=== PATIENT | female | born 1955 | race Caucasian/White ===

== ENCOUNTER 2017-12-07 12:58 | Outpatient (CLI) | payer MEDICARE, MEDICAID | END 2017-12-07 12:59 | disposition critical access hospital (66) | LOC: EMS 12:58 | PROVIDERS: ATTEND Surgery | DX: R53.1 Weakness (principal); K08.9 Disorder of teeth and supporting structures, unspecified | CPT/HCPCS: A0425; A0427 ==

== ENCOUNTER 2017-12-07 13:34 | Emergency (ER) | payer MEDICARE, MEDICAID ==
[2017-12-07 14:30] VITALS: BP 171/107
--- NOTE | 2017-12-07 14:51 | ED Physician Documentation ---
History of Present Illness - Stated complaint Stated Complaint: GENERAL WEAKNESS - Chief complaint Chief Complaint: General - History obtained from History obtained from: Patient - History of Present Illness Timing: How many weeks ago (1) Pain level max: 4 Pain level now: 2 Improved by: nothing Worsened by: nothing - Additonal information Additional information: Patient states that she had a tooth pulled 1 week ago, the tooth broke and is now more swollen. also feels like her sinus on the R is infected again. Treated with abx in October, but did not finish them. States her dentist told her to see an oral surgeon for her tooth. Has not made this appt yet. Vomited x2 2 days ago, feels better now. BP high today, but hasn't taken her meds for a few days. No chest pain or dyspnea. No vision changes. Is supposed to pepper picker her refills. today. Review of Systems Constitutional: reports: Fever (subjective) Nose: reports: Congestion, Sinus pressure / pain Throat: denies: Sore throat Cardiac: denies: Chest pain / pressure Respiratory: denies: Cough GI: denies: Abdominal Pain, Nausea, Diarrhea, Hematemesis, Bloody / black stool : denies: Dysuria Skin: denies: Rash Musculoskeletal: denies: Neck pain, Back pain Neurologic: denies: Headache PD PAST MEDICAL HISTORY - Past Medical History Past Medical History: Yes Cardiovascular: Hypertension Respiratory: COPD HEENT: None Psych: Depression, Anxiety Musculoskeletal: Osteoarthritis - Past Surgical History Past Surgical History: Yes General: Appendectomy Ortho: Spine surgery /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 Neuro: Other HEENT: Tonsil/Adenoidectomy - Present Medications Home Medications: Ambulatory Orders Medication Instructions Recorded Confirmed Cyclobenzaprine [Flexeril] 10 mg PO BID 06/03/13 06/08/16 Gabapentin 300 mg PO DAILY 06/03/13 06/08/16 Lisinopril [Zestril] 20 mg PO DAILY 06/03/13 06/08/16 Omeprazole [PriLOSEC] 20 mg PO DAILY 08/10/14 06/08/16 Amox/Clav 875/125 [Augmentin] 1 each PO Q12H #20 tablet 12/07/17 - Allergies Allergies/Adverse Reactions: Allergies Allergy/AdvReac Type Severity Reaction Status Date / Time acetaminophen [From Tylenol] Allergy Unknown Verified 08/11/14 10:08 - Social History Does the pt smoke?: Yes Smoking Status: Current every day smoker Does the pt drink ETOH?: No Does the pt have substance abuse?: No - POLST Patient has POLST: No PD ED PE NORMAL - Vitals Vital signs reviewed: Yes - General General: Alert and oriented X 3, No acute distress, Well developed/nourished - HEENT HEENT: PERRL, Moist mucous membranes, Other (TTP over the R maxillary sinus. No overlying skin changes. Edentulous mouth with swelling where the lower R canine would be, no fluctuance. No ludwigs angina.) - Neck Neck: Supple, no meningeal sign - Cardiac Cardiac: RRR, No murmur - Respiratory Respiratory: Clear bilaterally - Abdomen Abdomen: Normal bowel sounds, Soft, Non tender, Non distended - Derm Derm: Warm and dry - Extremities Extremities: No deformity - Neuro Neuro: Alert and oriented X 3 - Psych Psych: Normal mood, Normal affect Results - Vitals Vitals: Vital Signs - 24 hr 12/07/17 12/07/17 13:42 14:27 Temperature 36.6 C Heart Rate 95 78 Respiratory 18 18 Rate Blood Pressure 161/96 H 171/107 H O2 Saturation 97 98 Oxygen O2 Source Room air PD MEDICAL DECISION MAKING - ED course Complexity details: considered differential, d/w patient ED course: Patient is a 62-year-old female who presents to the emergency department with what appears to be sinusitis as well as dental caries. She is fully edentulous now other than a slight swelling where her right lower canine used to be. Will place on antibiotics and follow-up with the dentist. She declines any laboratory work at this time. She received IV fluids with EMS. No longer feels lightheaded or dizzy with standing. She would like to go home at this time. No facial swelling or cellulitis. Patient counseled regarding signs and symptoms for which I believe and urgent re-evaluation would be necessary. Patient with good understanding of and agreement to plan and is comfortable going home at this time This document was made in part using voice recognition software. While efforts are made to proofread this document, sound alike and grammatical errors may occur. She will pepper picker her antihypertensive medications on the way home Departure - Departure Disposition: 01 Home, Self Care Clinical Impression: Dental infection Sinusitis Qualifiers: Sinusitis location: maxillary Chronicity: acute Recurrence: recurrent Qualified Code(s): J01.01 - Acute recurrent maxillary sinusitis Condition: Good Instructions: ED Sinusitis Abx Tx Follow-Up: VALENTIN CLEARY [Physician No Access] - Valentin Cleary DDS [Provider Admit Priv/Credential] - Prescriptions: Amox/Clav 875/125 [Augmentin] 1 each PO Q12H #20 tablet Comments: Take all antibiotics until gone. Follow up with a dentist or oral surgeon for your tooth. Discharge Date/Time: 12/07/17 15:03
== END 2017-12-07 15:03 | disposition home or self-care (01) ==
LOC: EDUNIT# → ED 13:34
DX: K04.7 Periapical abscess without sinus (principal); J01.01 Acute recurrent maxillary sinusitis; I10 Essential (primary) hypertension; F17.200 Nicotine dependence, unspecified, uncomplicated
CPT/HCPCS: 99283

== ENCOUNTER 2018-01-18 09:47 | Outpatient (CLI) | payer MEDICARE, MEDICAID ==
[2018-01-19 15:21] LABS: HEPATITIS C ANTIBODY NON-REACTIVE (NON-REACTIVE)
== END 2018-01-18 09:48 | disposition home or self-care (01) ==
LOC: LAB.S 09:47
PROVIDERS: ATTEND Nurse Practitioner Family
DX: Z20.5 Contact with and (suspected) exposure to viral hepatitis (principal)
CPT/HCPCS: 36415; 86803

== ENCOUNTER 2018-03-25 15:39 | Outpatient (CLI) | payer MEDICARE, MEDICAID ==
--- NOTE | 2018-03-26 10:07 | XRAY Report ---
TWO VIEW CHEST: 03/25/2018 CLINICAL INDICATION: Cough. COMPARISON: 08/31/2015. FINDINGS: Frontal and lateral views of the chest demonstrate a normal cardiac silhouette. The lungs are clear. No effusion or pneumothorax is present. IMPRESSION: NORMAL CHEST. TD: 03/26/2018 09:56
== END 2018-03-25 15:40 | disposition home or self-care (01) ==
LOC: DI.S 15:39
PROVIDERS: ATTEND Nurse Practitioner Family
DX: R05 Cough (principal)
CPT/HCPCS: 71046

== ENCOUNTER 2018-04-19 09:49 | Outpatient (CLI) | END 2018-04-19 09:50 | disposition home or self-care (01) ==

== ENCOUNTER 2018-07-20 09:48 | Outpatient (CLI) | payer MEDICARE, MEDICAID ==
[2018-07-21 13:57] LABS: HEPATITIS C ANTIBODY NON-REACTIVE (NON-REACTIVE)
== END 2018-07-20 09:49 | disposition home or self-care (01) ==
LOC: LAB.F 09:48
PROVIDERS: ATTEND Nurse Practitioner Family
DX: Z20.5 Contact with and (suspected) exposure to viral hepatitis (principal)
CPT/HCPCS: 36415; 86803

== ENCOUNTER 2018-08-07 10:32 | Emergency (ER) | payer MEDICARE, MEDICAID ==
[2018-08-07 11:50] LABS: BASOPHILS # (AUTO) 0.1 10^3/uL (0.0-0.1); EOSINOPHILS # (AUTO) 0.2 10^3/uL (0.0-0.7); EOSINOPHILS % (AUTO) 1.5 %; HGB - HEMOGLOBIN 15.8 g/dL (12.0-16.0); LYMPHOCYTES # (AUTO) 3.3 10^3/uL (1.5-3.5); LYMPHOCYTES % (AUTO) 22.8 %; MEAN CORPUSCULAR HEMOGLOBIN 29.7 pg (27.0-31.0); MEAN CORPUSCULAR HGB CONC 34.7 g/dL (32.0-36.0); MEAN CORPUSCULAR VOLUME 85.5 fL (81.0-99.0); MONOCYTES # (AUTO) 0.7 10^3/uL (0.0-1.0); MONOCYTES % (AUTO) 4.7 %; NEUTROPHILS # (AUTO) 10.2 10^3/uL (1.5-6.6); PLT - PLATELET COUNT 246 10^3/uL (130-450); RED BLOOD COUNT 5.34 10^6/uL (4.20-5.40); RED CELL DISTRIBUTION WIDTH 12.9 % (12.0-15.0); WHITE BLOOD COUNT 14.5 x10^3/uL (4.8-10.8)
[2018-08-07 11:58] LABS: CALCIUM 9.4 mg/dL (8.5-10.3); CREATININE 0.7 mg/dL (0.4-1.0)
[2018-08-07] MEDS ORDERED: IOPAMIDOL-300 100 ML VIAL ONE (12:12)
[2018-08-07] MEDS ORDERED: IOPAMIDOL-300 100 ML VIAL IVP ONE ×2 (12:23)
--- NOTE | 2018-08-07 12:59 | CT Report ---
Reason: left jaw pain with tender lesion Procedure Date: 08/07/2018 Accession Number: [id number] / [id number] Procedure: CT - Neck Soft Tissue W/ CPT Code: FULL RESULT: EXAM: CT SOFT TISSUE NECK WITH CONTRAST. EXAM DATE: 08/07/2018 12:25 PM. HISTORY: 63-year-old woman with left-sided jaw pain and tenderness. COMPARISONS: NECK SOFT TISSUE W/ 02/15/2014 3:35 PM. TECHNIQUE: Routine soft tissue neck CT protocol. Reconstructions: Coronal and sagittal. IV contrast: ISOVUE 300 80mL. In accordance with CT protocol optimization, one or more of the following dose reduction techniques were utilized for this exam: automated exposure control, adjustment of mA and/or KV based on patient size, or use of iterative reconstructive technique. FINDINGS: Visualized Intracranial Contents: Unremarkable. Orbits: Unremarkable. Sinuses: Minimal mucosal thickening is present in the paranasal sinuses. Mastoid air cells are clear. Pharynx and Oral Cavity: Parapharyngeal and retropharyngeal spaces are symmetric without mass lesion. Base of tongue and floor of mouth are symmetric without mass lesion. Pharyngeal airway is widely patent. Larynx: Symmetric without mass lesion. True vocal cords are symmetric. Airway is widely patent. Parotid and Submandibular Glands: The left parotid gland is mildly enhancing and enlarged and there is surrounding fat stranding, consistent with inflammatory reaction. No evidence of dilated ducts, sialolith, or underlying mass lesion. The right parotid and bilateral submandibular glands are unremarkable. Lymph Nodes and Soft Tissues: No cervical or supraclavicular lymphadenopathy is present. Mild fat stranding and fascial thickening is present in the left submandibular soft tissues and overlying the adjacent parotid gland, most consistent with inflammatory reaction. No evidence of fluid collection to suggest abscess. Thyroid: Normal. Lung Apices: Clear. Bones: No acute fracture or malalignment. Degenerative changes are present, worst at C6-C7. Teeth: The patient is edentulous. IMPRESSION: 1. Fat stranding and fascial thickening in the left submandibular soft tissues and surrounding the adjacent parotid gland. The parotid gland also appears mildly enlarged and enhancing. Findings are consistent with inflammatory reaction, consistent with parotiditis versus local cellulitis. No evidence of fluid collection to suggest abscess. RADIA
[2018-08-07] MEDS ORDERED: predniSONE 20 MG TABLET PO STA (13:20)
--- NOTE | 2018-08-07 13:25 | ED Physician Documentation ---
History of Present Illness - Stated complaint Stated Complaint: LT JAW PX/NECK PX BELOW LT EAR - Chief complaint Chief Complaint: General - History obtained from History obtained from: Patient - History of Present Illness Timing: How many days ago (2) Pain level max: 0 Pain level now: 0 - Additonal information Additional information: Pt here with complain of left jaw swelling the past 2 days. Denies any fever or other symptoms. Pt expressed concern about her jaw which was injured 20 years ago and she had to have reconstruction 5 years ago. States she has chronic drainage and inflammation of her left maxillary sinus and left jaw and had been followed up with an [facility] surgeon. She expressed concern about an infection or cancer. Pt states she smokes and her immunization status including mumps is up to date. Review of Systems Ten Systems: 10 systems reviewed and negative Constitutional: reports: Chills. denies: Fever Ears: denies: Ear pain Nose: reports: Congestion, Sinus pressure / pain. 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 Neuro: Other HEENT: Tonsil/Adenoidectomy, Other (multiple left facial/sinus surgeries in 2012 from previous injury in 1997) - Present Medications Home Medications: Ambulatory Orders Medication Instructions Recorded Confirmed Lisinopril [Zestril] 20 mg PO DAILY 06/03/13 06/08/16 RX: Omeprazole [PriLOSEC] 20 mg PO DAILY 08/10/14 06/08/16 Aspirin [Aspirin EC] 81 mg PO 08/07/18 RX: predniSONE [Prednisone] 20 mg PO BID #8 tablet 08/07/18 - Allergies Allergies/Adverse Reactions: Allergies Allergy/AdvReac Type Severity Reaction Status Date / Time acetaminophen [From Tylenol] Allergy Unknown Verified 08/07/18 10:50 - Social History Does the pt smoke?: Yes Smoking Status: Current every day smoker Does the pt drink ETOH?: No Does the pt have substance abuse?: No - Immunizations Immunizations are current?: No Immunizations: TDAP >10years/unknown - POLST Patient has POLST: No PD ED PE NORMAL - Vitals Vital signs reviewed: Yes - General General: Alert and oriented X 3, No acute distress, Well developed/nourished - HEENT HEENT: Ears normal, Moist mucous membranes, Pharynx benign, Other (has dentures. No gingivitis. Non tender and not swollen buccal mucosa. post nasal drip in posterior pharynx. TMJ intact. Left mandible by the angle with a soft round mass that's mildly tender to palpation about 2 cm in diameter. No erythema.) - Neck Neck: Supple, no meningeal sign, No adenopathy - Cardiac Cardiac: RRR, No murmur - Respiratory Respiratory: No respiratory distress, Clear bilaterally - Abdomen Abdomen: Normal bowel sounds, Soft, Non tender, Non distended - Derm Derm: Warm and dry - Extremities Extremities: No deformity - Neuro Neuro: Alert and oriented X 3 - Psych Psych: Normal mood, Normal affect Results - Vitals Vitals: Vital Signs - 24 hr 08/07/18 10:47 Temperature 37.3 C Heart Rate 110 H Respiratory 19 Rate Blood Pressure 151/97 H O2 Saturation 97 Oxygen O2 Source Room air - Labs Labs: Laboratory Tests 08/07/18 08/07/18 11:40 11:40 WBC 14.5 H RBC 5.34 Hgb 15.8 Hct 45.6 MCV 85.5 MCH 29.7 MCHC 34.7 RDW 12.9 Plt Count 246 MPV 8.0 Neut # (Auto) 10.2 H Lymph # (Auto) 3.3 [place] # (Auto) 0.7 Eos # (Auto) 0.2 Baso # (Auto) 0.1 Absolute Nucleated RBC 0.00 Nucleated RBC % 0.0 Sodium 135 Potassium 4.0 Chloride 101 Carbon Dioxide 25 Anion Gap 9.0 BUN 24 H Creatinine 0.7 Estimated GFR (MDRD) 85 L Glucose 119 H Calcium 9.4 PD MEDICAL DECISION MAKING - ED course Complexity details: re-evaluated patient (Pt NAD, nontoxic, not drooling. Wants to go home on prednisone.), considered differential (parotitis, saleolithiasis, abscess, cellulitis, mass), d/w patient (Pt informed of test results. Discussed options of treatment. Pt refused antibiotics as she was told that she's getting resistant to antibiotics after all the treatments she had received from her left jaw/sinus problems. She wants prednisone to decrease the inflammation and drainage which had helped before. She will contact her [facility] doctor for reevaluation and go to an ENT if her [facility] doctor does not want to handle her current inflammed parotid gland) Departure - Departure Disposition: 01 Home, Self Care Clinical Impression: Parotitis, acute Condition: Good Instructions: ED Submandibular Gland Infec Follow-Up: Wendy Valladares ARNP [Primary Care Provider] - Within 3 Days Prescriptions: RX: predniSONE [Prednisone] 20 mg PO BID #8 tablet Comments: FOLLOW UP W/ YOUR [facility] DOCTOR THIS WEEK. GET AN E.N.T. REFERRAL TO REEVALUATE YOUR LEFT PAROTITIS OR INFLAMMED PAROTID GLAND. IF WORSE RETURN TO THE E.R. Discharge Date/Time: 08/07/18 13:39
[2018-08-07 13:33] VITALS: BP 136/86
== END 2018-08-07 13:39 | disposition home or self-care (01) ==
LOC: ED 10:32
DX: K11.21 Acute sialoadenitis (principal); I10 Essential (primary) hypertension; F17.200 Nicotine dependence, unspecified, uncomplicated; Z79.82 Long term (current) use of aspirin
CPT/HCPCS: 36415; 70491; 80048; 85025; 99283; J7512; Q9967

== ENCOUNTER 2018-09-25 13:26 | Outpatient (CLI) | payer MEDICARE, MEDICAID ==
[2018-09-25] MEDS ORDERED: ALBUTEROL NEB 2.5 MG/3 ML INH ONE (15:00)
== END 2018-09-25 13:27 | disposition home or self-care (01) ==
LOC: RT 13:26
PROVIDERS: ATTEND Nurse Practitioner Family
DX: J44.9 Chronic obstructive pulmonary disease, unspecified (principal)
CPT/HCPCS: 94060

== ENCOUNTER 2019-04-01 12:51 | Outpatient (CLI) | payer MEDICARE, MEDICAID ==
[2019-04-02 12:22] LABS: HEPATITIS C ANTIBODY NON-REACTIVE (NON-REACTIVE)
== END 2019-04-01 12:52 | disposition home or self-care (01) ==
LOC: LAB.F 12:51
PROVIDERS: ATTEND Registered Nurse
DX: Z20.5 Contact with and (suspected) exposure to viral hepatitis (principal)
CPT/HCPCS: 36415; 86803

== ENCOUNTER 2019-06-24 07:31 | Outpatient (CLI) | payer MEDICARE, MEDICAID ==
--- NOTE | 2019-06-24 15:58 | CT Report ---
Reason: PERSONAL HISTORY OF NICOTINE DEPENDENCE Procedure Date: 06/24/2019 Accession Number: [id number] / [id number] Procedure: CT - Low Dose Lung Cancer Screen CPT Code: FULL RESULT: EXAM CT LUNG SCREEN EXAM DATE: 06/24/2019 07:39 AM. HISTORY: 64-year-old patient with 82-wvdv-coer smoking history. Currently smoking: Yes. COMPARISON: None. TECHNIQUE: CT examination of the entire thorax without contrast was performed using low-dose technique. Thin section coronal, axial, sagittal and MIP axial images were obtained. In accordance with CT protocol optimization, one or more of the following dose reduction techniques were utilized for this exam: automated exposure control, adjustment of mA and/or KV based on patient size, or use of iterative reconstructive technique. FINDINGS: Nodules: Right upper lobe: 3 mm apical nodule image 17 series 4, 0.6 x 0.5 cm nodule image 47. Right middle lobe: 3 mm nodule image 101. Right lower lobe: 4 mm nodule image 94. Left upper lobe: 2 mm nodule image 64. Left lower lobe: None. Emphysema: Overall mild. Pleura: Unremarkable. Aorta: Unremarkable. Mediastinum: Unremarkable. Coronary calcifications: None. Other pulmonary findings: None. Other extrapulmonary findings: None. IMPRESSION: Lung-RADS ASSESSMENT CATEGORY: 3 - probably benign. Probability of malignancy: 1-2%. RECOMMENDATION: Per lung RADS guidelines, 6-month follow-up low-dose chest CT. RADIA
== END 2019-06-24 07:32 | disposition home or self-care (01) ==
LOC: DI 07:31
PROVIDERS: ATTEND Registered Nurse
DX: Z12.2 Encounter for screening for malignant neoplasm of respiratory organs (principal); J43.9 Emphysema, unspecified; F17.210 Nicotine dependence, cigarettes, uncomplicated

== ENCOUNTER 2020-08-09 07:46 | Outpatient (CLI) | payer MEDICARE, MEDICAID ==
[2020-08-09 15:35] LABS: BASOPHILS # (AUTO) 0.1 10^3/uL (0.0-0.1); BASOPHILS % (AUTO) 0.5 %; EOSINOPHILS # (AUTO) 0.3 10^3/uL (0.0-0.7); EOSINOPHILS % (AUTO) 2.6 %; HGB - HEMOGLOBIN 16.4 g/dL (12.0-16.0); LYMPHOCYTES # (AUTO) 3.2 10^3/uL (1.5-3.5); MEAN CORPUSCULAR HEMOGLOBIN 29.3 pg (27.0-31.0); MEAN CORPUSCULAR HGB CONC 31.8 g/dL (32.0-36.0); MEAN CORPUSCULAR VOLUME 92.1 fL (81.0-99.0); MEAN PLATELET VOLUME 11.2 fL (7.9-10.8); MONOCYTES # (AUTO) 0.4 10^3/uL (0.0-1.0); MONOCYTES % (AUTO) 4.1 %; NEUTROPHILS # (AUTO) 5.8 10^3/uL (1.5-6.6); NEUTROPHILS % (AUTO) 59.4 %; PLT - PLATELET COUNT 247 10^3/uL (130-450); RED CELL DISTRIBUTION WIDTH 12.2 % (12.0-15.0); WHITE BLOOD COUNT 9.7 x10^3/uL (4.8-10.8)
[2020-08-09 15:58] LABS: ALBUMIN 4.4 g/dL (3.2-5.5); ALBUMIN/GLOBULIN RATIO 1.5 (1.0-2.2); ALKALINE PHOSPHATASE 68 IU/L (42-121); ALT ALANINE AMINOTRANSFERASE 13 IU/L (10-60); AST ASPARTATE AMINOTRANSFERASE 16 IU/L (10-42); BILIRUBIN,TOTAL 0.6 mg/dL (0.2-1.0); BUN - BLOOD UREA NITROGEN 13 mg/dL (6-20); CALCIUM 9.7 mg/dL (8.5-10.3); CARBON DIOXIDE - CO2 29 mmol/L (21-32); CHLORIDE 103 mmol/L (101-111); CHOL/HDL RATIO 6.1 (<4.4); CHOLESTEROL 249 mg/dL; CREATININE 0.7 mg/dL (0.4-1.0); GLUCOSE 89 mg/dL (70-100); HDL CHOLESTEROL 41 mg/dL; LDL CHOLESTEROL,CALCULATED 160 mg/dL; LDL/HDL RATIO 3.9 (<4.4); PHOSPHORUS 2.9 mg/dL (2.5-4.6); SODIUM 140 mmol/L (135-145); TOTAL PROTEIN 7.3 g/dL (6.7-8.2); VLDL CHOLESTEROL 48 mg/dL
== END 2020-08-09 07:47 | disposition home or self-care (01) ==
LOC: LAB.S 07:46
PROVIDERS: ATTEND Family Medicine
DX: I10 Essential (primary) hypertension (principal); J44.9 Chronic obstructive pulmonary disease, unspecified; G62.9 Polyneuropathy, unspecified; K76.0 Fatty (change of) liver, not elsewhere classified; E78.5 Hyperlipidemia, unspecified
CPT/HCPCS: 36415; 80053; 80061; 82306; 83721; 83735; 84100; 84443; 85025

== ENCOUNTER 2020-08-16 12:31 | Outpatient (CLI) | payer MEDICARE, MEDICAID ==
[2020-08-16 15:26] LABS: BASOPHILS # (AUTO) 0.1 10^3/uL (0.0-0.1); BASOPHILS % (AUTO) 0.6 %; EOSINOPHILS # (AUTO) 0.2 10^3/uL (0.0-0.7); EOSINOPHILS % (AUTO) 1.5 %; HGB - HEMOGLOBIN 16.4 g/dL (12.0-16.0); LYMPHOCYTES # (AUTO) 3.3 10^3/uL (1.5-3.5); LYMPHOCYTES % (AUTO) 30.4 %; MEAN CORPUSCULAR HEMOGLOBIN 29.1 pg (27.0-31.0); MEAN CORPUSCULAR HGB CONC 32.9 g/dL (32.0-36.0); MEAN CORPUSCULAR VOLUME 88.6 fL (81.0-99.0); MONOCYTES # (AUTO) 0.6 10^3/uL (0.0-1.0); MONOCYTES % (AUTO) 5.7 %; NEUTROPHILS # (AUTO) 6.6 10^3/uL (1.5-6.6); NEUTROPHILS % (AUTO) 61.4 %; PLT - PLATELET COUNT 274 10^3/uL (130-450); RED BLOOD COUNT 5.63 10^6/uL (4.20-5.40); RED CELL DISTRIBUTION WIDTH 11.9 % (12.0-15.0); WHITE BLOOD COUNT 10.8 x10^3/uL (4.8-10.8)
== END 2020-08-16 12:32 | disposition home or self-care (01) ==
LOC: LAB.S 12:31
PROVIDERS: ATTEND Internal Medicine
DX: D75.1 Secondary polycythemia (principal)
CPT/HCPCS: 36415; 82668; 85025

== ENCOUNTER 2020-09-05 13:55 | Outpatient (CLI) | payer MEDICARE, MEDICAID | END 2020-09-05 13:56 | disposition home or self-care (01) | LOC: LAB.S 13:55 | PROVIDERS: ATTEND Internal Medicine | DX: D75.1 Secondary polycythemia (principal) | CPT/HCPCS: 36415; 81270 ==

== ENCOUNTER 2020-09-11 13:51 | Outpatient (CLI) | payer MEDICARE, MEDICAID ==
--- NOTE | 2020-09-11 17:13 | XRAY Report ---
PROCEDURE: Ribs w/PA Chest LT INDICATIONS: POLYCYTHEMIA TECHNIQUE: 2 views of the left ribs were acquired, along with a single view chest. COMPARISON: 03/25/2018 FINDINGS: Surgical changes and devices: None. Bones and chest wall: No fractures or dislocations. No suspicious bony lesions. Overlying soft tis sues appear unremarkable. Lungs and pleura: No pleural effusions or pneumothorax. Lungs appear clear. Mediastinum: Mediastinal contours appear normal. Heart size is normal. IMPRESSION: Chest without acute cardiopulmonary abnormalities. No acute rib fractures identified. Reviewed by: Kendall Lagunas MD on 09/11/2020 5:12 PM PST Approved by: Kendall Lagunas MD on 09/11/2020 5:12 PM PST Station ID: [id number]
== END 2020-09-11 13:52 | disposition home or self-care (01) ==
LOC: DI.S 13:51
PROVIDERS: ATTEND Internal Medicine
DX: D75.1 Secondary polycythemia (principal)

== ENCOUNTER 2020-10-09 10:26 | Outpatient (CLI) | payer MEDICARE, MEDICAID ==
[2020-10-09 15:53] LABS: BILIRUBIN,URINE NEGATIVE (NEGATIVE); GLUCOSE, URINE (UA) NEGATIVE (NEGATIVE); KETONES,URINE (UA) NEGATIVE (NEGATIVE); LEUKOCYTE ESTERASE, URINE TRACE (NEGATIVE); NITRITE,URINE NEGATIVE (NEGATIVE); OCCULT BLOOD,URINE NEGATIVE (NEGATIVE); PROTEIN,URINE NEGATIVE (NEGATIVE); UROBILINOGEN,URINE 0.2 (NORMAL) E.U./dL (NORMAL)
[2020-10-09 16:02] LABS: BACTERIA,URINE Many /HPF (None Seen); CLARITY,URINE CLEAR (CLEAR); RBC,URINE 0-5 /HPF (0-5); SQUAMOUS EPITHELIAL CELL,UR MANY Squamous (<= Few)
== END 2020-10-09 10:27 | disposition home or self-care (01) ==
LOC: LAB.S 10:26
PROVIDERS: ATTEND Internal Medicine
DX: M54.5 Low back pain (principal)
CPT/HCPCS: 81001; 87086

== ENCOUNTER 2020-10-16 12:10 | Outpatient (CLI) | payer MEDICARE, MEDICAID ==
--- NOTE | 2020-10-16 14:55 | Ultrasound Report ---
PROCEDURE: Retroperitoneal INDICATIONS: POLYCYTHEMIA TECHNIQUE: Real-time scanning was performed of the kidneys and bladder, with image documentation. COMPARISON: CT abdomen and pelvis dated 02/08/2014 and abdominal ultrasound dated 06/10/2013 FINDINGS: Kidneys: Kidneys are normal in size. Right kidney measures 11.3 cm long; left kidney measures 10.4 cm long. Right renal cortical thickness is 1.4 cm; left renal cortical thickness is 1.4 cm. Renal c ortical echotexture is normal. Mild pelviectasis of the right kidney without obvious obstruction. No nephrolithiasis. Normal appearance of the left kidney. No suspicious solid mass lesions. Bladder: Pre-void bladder volume is 82 mL. Post-void residual is 1.1 mL. Pre-void images demonstra te no intraluminal masses or stones. On pre-void images, bilateral ureteral jets are noted with colo r Doppler interrogation. (Of note, ureteral jets may not be detectable in up to 25% of cases due to insufficient differences in specific gravity between ureteral and bladder urine). Miscellaneous: No free pelvic fluid. IMPRESSION: Mild pelviectasis of the right kidney without obvious obstruction. Normal appearance of the left kidn ey. Reviewed by: Kendall Lagunas MD on 10/16/2020 2:54 PM PST Approved by: Kendall Lagunas MD on 10/16/2020 2:54 PM PST Station ID: [id number]
== END 2020-10-16 12:11 | disposition home or self-care (01) ==
LOC: DI 12:10
PROVIDERS: ATTEND Internal Medicine
DX: M89.9 Disorder of bone, unspecified (principal); R07.81 Pleurodynia; D75.1 Secondary polycythemia; N28.9 Disorder of kidney and ureter, unspecified

== ENCOUNTER 2020-12-21 12:00 | Outpatient (CLI) | payer MEDICARE, MEDICAID ==
--- NOTE | 2020-12-21 16:59 | Nuclear Medicine Report ---
PROCEDURE: Bone Whole Body INDICATIONS: BONE PAIN, LT SIDED RIB PAIN RADIOPHARMACEUTICAL: 26.4 mCi Tc-99m MDP IV. TECHNIQUE: Delayed whole-body scintigrams were obtained approximately 3-4 hours after intravenous injection of r adiotracer. Anterior and posterior views were acquired from vertex to feet. Additional left and rig ht oblique views of the skull, thorax and pelvis were obtained. COMPARISON: Rib series left, 09/11/2020. FINDINGS: Foci of increased uptake in the right cervical spine are most likely secondary to facet ar thropathy. Low level increased activity in lumbar spine is most likely degenerative in nature. There are foci of increased periarticular activity in shoulders bilaterally, bilaterally, ankles and feet b ilaterally, consistent with degenerative/arthritic changes. Hyperostosis frontalis. IMPRESSION: 1. Foci of increased uptake in the right cervical spine are compatible with facet arthropathy. 2. A cause for rib pain is not identified on bone scan. Reviewed by: Sarthak Aguilar MD on 12/21/2020 4:58 PM PST Approved by: Sarthak Aguilar MD on 12/21/2020 4:58 PM PST Station ID: [id number]
== END 2020-12-21 12:01 | disposition home or self-care (01) ==
LOC: DI 12:00
PROVIDERS: ATTEND Internal Medicine
DX: R07.81 Pleurodynia (principal); M89.9 Disorder of bone, unspecified
CPT/HCPCS: 78306

== ENCOUNTER 2020-12-21 12:01 | Outpatient (CLI) | payer MEDICARE, MEDICAID ==
--- NOTE | 2020-12-24 09:30 | Mammography Report ---
BILATERAL DIGITAL SCREENING MAMMOGRAM 3D/2D: 12/21/2020 CLINICAL: Routine screening. Comparison is made to exams dated: 07/10/2011 mammogram and 01/29/2010 mammogram - [facility]. There are scattered fibroglandular elements in both breasts. No significant masses, calcifications, or other findings are seen in either breast. There has been no significant interval change. IMPRESSION: NEGATIVE There is no mammographic evidence of malignancy. A 1 year screening mammogram is recommended. This exam was interpreted at Station ID: [id number]. NOTE: For mammograms, a report in lay terms will be sent to the patient. Approximately 15% of breast malignancies will not be visualized mammographically. In the management of a palpable breast mass, a negative mammogram must not discourage biopsy of a clinically suspicious lesion. Electronically Signed By: Renan Jaeger M.D. ar/penrad:12/21/2020 13:34:41 ACR BI-RADS Category 1: Negative 3341F PARENCHYMAL PATTERN: (A) - The breast(s) demonstrate(s) scattered fibroglandular densities. BI-RADS CATEGORY: (1) - 1 RECOMMENDATION: (ANNUAL) - Recommend routine annual screening mammography. [id number] 1 year screening LATERALITY: (B)
== END 2020-12-21 12:02 | disposition home or self-care (01) ==
LOC: DI 12:01
PROVIDERS: ATTEND Internal Medicine
DX: Z12.31 Encounter for screening mammogram for malignant neoplasm of breast (principal)

== ENCOUNTER 2020-12-21 12:02 | Outpatient (CLI) | payer MEDICARE, MEDICAID ==
--- NOTE | 2020-12-24 06:45 | CT Report ---
PROCEDURE: Low Dose Lung Cancer Screen INDICATIONS: CURRENT SMOKER TECHNIQUE: Noncontrast low-dose 5 mm thick sections acquired from the pulmonary apices to the posterior costophr enic angles. 7 mm thick coronal and sagittal MIP reformats were then acquired. For radiation dose r eduction, the following was used: automated exposure control, adjustment of mA and/or kV according t o patient size. COMPARISON: 06/24/2019 FINDINGS: Image quality: Excellent. Lungs and pleura: Previously described pulmonary nodules are unchanged. There is no new or enlarging noncalcified pulmonary nodule demonstrated. No focal consolidation or other acute airspace opacity. No significant pleural abnormality. Mediastinum: Heart size is normal. No pericardial effusion. No mediastinal adenopathy by size crit eria. Thoracic aorta and central pulmonary arteries are normal in size. Esophagus is normal in walt greg. No hiatal hernia. Bones and chest wall: No suspicious bony lesions. No vertebral body compression fractures. No axil pacheco or supraclavicular adenopathy by size criteria. The thyroid is normal in size. Abdomen: Visualized upper abdomen solid organs and bowel loops appear normal in the absence of contr ast. IMPRESSION: No suspicious pulmonary nodule or mass. No change in size of previously identified subcentimeter nodu les, likely benign. Lung-RADS category 3. Recommendation: Annual low-dose screening CT of the chest. Reviewed by: Zach Wood MD on 12/21/2020 1:21 PM PST Approved by: Zach Wood MD on 12/21/2020 1:21 PM PST Station ID: [id number]
== END 2020-12-21 12:03 | disposition home or self-care (01) ==
LOC: DI 12:02
PROVIDERS: ATTEND Internal Medicine
DX: Z12.2 Encounter for screening for malignant neoplasm of respiratory organs (principal); F17.210 Nicotine dependence, cigarettes, uncomplicated; R07.81 Pleurodynia; M89.9 Disorder of bone, unspecified
CPT/HCPCS: 78306

== ENCOUNTER 2021-05-13 08:38 | Outpatient (CLI) | payer MEDICARE, MEDICAID ==
[2021-05-13 15:35] LABS: BASOPHILS # (AUTO) 0.1 10^3/uL (0.0-0.1); BASOPHILS % (AUTO) 0.6 %; EOSINOPHILS # (AUTO) 0.1 10^3/uL (0.0-0.7); EOSINOPHILS % (AUTO) 1.2 %; HCT - HEMATOCRIT 52.2 % (37.0-47.0); HGB - HEMOGLOBIN 16.5 g/dL (12.0-16.0); LYMPHOCYTES # (AUTO) 3.1 10^3/uL (1.5-3.5); LYMPHOCYTES % (AUTO) 29.5 %; MEAN CORPUSCULAR HEMOGLOBIN 28.9 pg (27.0-31.0); MEAN CORPUSCULAR HGB CONC 31.6 g/dL (32.0-36.0); MEAN CORPUSCULAR VOLUME 91.4 fL (81.0-99.0); MEAN PLATELET VOLUME 11.1 fL (7.9-10.8); MONOCYTES # (AUTO) 0.5 10^3/uL (0.0-1.0); MONOCYTES % (AUTO) 4.5 %; NEUTROPHILS # (AUTO) 6.6 10^3/uL (1.5-6.6); NEUTROPHILS % (AUTO) 63.6 %; PLT - PLATELET COUNT 226 10^3/uL (130-450); RED BLOOD COUNT 5.71 10^6/uL (4.20-5.40); RED CELL DISTRIBUTION WIDTH 12.7 % (12.0-15.0); WHITE BLOOD COUNT 10.4 x10^3/uL (4.8-10.8)
[2021-05-13 15:58] LABS: ALBUMIN 4.8 g/dL (3.2-5.5); ALBUMIN/GLOBULIN RATIO 1.8 (1.0-2.2); ALKALINE PHOSPHATASE 75 IU/L (42-121); ALT ALANINE AMINOTRANSFERASE 14 IU/L (10-60); AST ASPARTATE AMINOTRANSFERASE 19 IU/L (10-42); BILIRUBIN,TOTAL 0.6 mg/dL (0.2-1.0); BUN - BLOOD UREA NITROGEN 16 mg/dL (6-20); CALCIUM 9.4 mg/dL (8.5-10.3); CARBON DIOXIDE - CO2 26 mmol/L (21-32); CHLORIDE 100 mmol/L (101-111); CHOL/HDL RATIO 5.1 (<4.4); CHOLESTEROL 261 mg/dL; CREATININE 0.6 mg/dL (0.4-1.0); GFR - MDRD 101 (>89); GLUCOSE 99 mg/dL (70-100); HDL CHOLESTEROL 51 mg/dL; LDL CHOLESTEROL,CALCULATED 181 mg/dL; LDL/HDL RATIO 3.5 (<4.4); POTASSIUM 3.8 mmol/L (3.5-5.0); SODIUM 137 mmol/L (135-145); TOTAL PROTEIN 7.4 g/dL (6.7-8.2); TRIGLYCERIDES 147 mg/dL; VLDL CHOLESTEROL 29 mg/dL
== END 2021-05-13 08:39 | disposition home or self-care (01) ==
LOC: LAB.S 08:38
PROVIDERS: ATTEND Internal Medicine
DX: I10 Essential (primary) hypertension (principal); E55.9 Vitamin D deficiency, unspecified; D75.1 Secondary polycythemia
CPT/HCPCS: 36415; 80053; 80061; 82306; 83721; 85025

== ENCOUNTER 2021-09-04 08:00 | Outpatient (CLI) | payer MEDICARE, MEDICAID | END 2021-09-04 23:59 | disposition home or self-care (01) | LOC: LAB.S 08:00 | PROVIDERS: ATTEND Emergency Medicine | DX: J06.9 Acute upper respiratory infection, unspecified (principal); Z20.822 Contact with and (suspected) exposure to COVID-19 ==

== ENCOUNTER 2021-12-23 11:48 | Outpatient (CLI) | payer MEDICARE, MEDICAID ==
[2021-12-23 14:28] LABS: BASOPHILS % (AUTO) 0.4 %; EOSINOPHILS # (AUTO) 0.2 10^3/uL (0.0-0.7); EOSINOPHILS % (AUTO) 1.7 %; HCT - HEMATOCRIT 48.9 % (37.0-47.0); LYMPHOCYTES # (AUTO) 3.2 10^3/uL (1.5-3.5); LYMPHOCYTES % (AUTO) 34.2 %; MEAN CORPUSCULAR HEMOGLOBIN 28.6 pg (27.0-31.0); MEAN CORPUSCULAR HGB CONC 32.7 g/dL (32.0-36.0); MEAN CORPUSCULAR VOLUME 87.5 fL (81.0-99.0); MEAN PLATELET VOLUME 10.9 fL (7.9-10.8); MONOCYTES # (AUTO) 0.5 10^3/uL (0.0-1.0); MONOCYTES % (AUTO) 5.7 %; NEUTROPHILS # (AUTO) 5.4 10^3/uL (1.5-6.6); NEUTROPHILS % (AUTO) 57.8 %; PLT - PLATELET COUNT 226 10^3/uL (130-450); RED BLOOD COUNT 5.59 10^6/uL (4.20-5.40); RED CELL DISTRIBUTION WIDTH 12.9 % (12.0-15.0); WHITE BLOOD COUNT 9.3 x10^3/uL (4.8-10.8)
[2021-12-23 14:48] LABS: ALBUMIN 4.4 g/dL (3.2-5.5); ALBUMIN/GLOBULIN RATIO 1.7 (1.0-2.2); BILIRUBIN,TOTAL 0.7 mg/dL (0.2-1.0); CALCIUM 9.1 mg/dL (8.5-10.3); CREATININE 0.6 mg/dL (0.4-1.0); POTASSIUM 3.7 mmol/L (3.5-5.0)
== END 2021-12-23 11:49 | disposition home or self-care (01) ==
LOC: LAB.S 11:48
PROVIDERS: ATTEND Internal Medicine
DX: I10 Essential (primary) hypertension (principal); D75.1 Secondary polycythemia
CPT/HCPCS: 36415; 80053; 85025

== ENCOUNTER 2022-02-21 08:00 | Outpatient (CLI) | payer MEDICARE, MEDICAID ==
[2022-02-21 15:22] LABS: BASOPHILS % (AUTO) 0.1 %; EOSINOPHILS % (AUTO) 0.3 %; HCT - HEMATOCRIT 46.7 % (37.0-47.0); HGB - HEMOGLOBIN 15.2 g/dL (12.0-16.0); LYMPHOCYTES % (AUTO) 22.2 %; MEAN CORPUSCULAR HEMOGLOBIN 28.5 pg (27.0-31.0); MEAN CORPUSCULAR HGB CONC 32.5 g/dL (32.0-36.0); MEAN CORPUSCULAR VOLUME 87.5 fL (81.0-99.0); MEAN PLATELET VOLUME 10.7 fL (7.9-10.8); MONOCYTES # (AUTO) 1.1 10^3/uL (0.0-1.0); MONOCYTES % (AUTO) 8.3 %; NEUTROPHILS # (AUTO) 9.4 10^3/uL (1.5-6.6); NEUTROPHILS % (AUTO) 68.7 %; PLT - PLATELET COUNT 273 10^3/uL (130-450); RED BLOOD COUNT 5.34 10^6/uL (4.20-5.40); RED CELL DISTRIBUTION WIDTH 12.3 % (12.0-15.0); WHITE BLOOD COUNT 13.7 x10^3/uL (4.8-10.8)
[2022-02-21 15:37] LABS: ALBUMIN 3.9 g/dL (3.2-5.5); ALBUMIN/GLOBULIN RATIO 1.3 (1.0-2.2); BILIRUBIN,TOTAL 0.5 mg/dL (0.2-1.0); CALCIUM 9.7 mg/dL (8.5-10.3); CREATININE 0.6 mg/dL (0.4-1.0); POTASSIUM 4.5 mmol/L (3.5-5.0); TOTAL PROTEIN 6.8 g/dL (6.7-8.2)
[2022-02-21 15:51] LABS: THYROID STIMULATING HORMONE 0.6 uIU/mL (0.34-5.60)
== END 2022-02-21 23:59 | disposition home or self-care (01) ==
LOC: LAB.S 08:00
PROVIDERS: ATTEND Physician Assistant Medical
DX: R50.9 Fever, unspecified (principal); R09.89 Other specified symptoms and signs involving the circulatory and respiratory systems; R61 Generalized hyperhidrosis; Z20.822 Contact with and (suspected) exposure to COVID-19
CPT/HCPCS: 36415; 80053; 84443; 85025; U0004

== ENCOUNTER 2022-07-03 09:51 | Outpatient (CLI) | payer MEDICARE, MEDICAID | END 2022-07-03 23:59 | disposition home or self-care (01) | LOC: LAB.S 09:51 | PROVIDERS: ATTEND Physician Assistant Medical | DX: R35.0 Frequency of micturition (principal) | CPT/HCPCS: 87086; 87181 ==

== ENCOUNTER 2022-09-17 12:50 | Outpatient (CLI) | payer MEDICARE, MEDICAID | END 2022-09-17 12:51 | disposition home or self-care (01) | LOC: DI 12:50 | PROVIDERS: ATTEND Registered Nurse | DX: I49.9 Cardiac arrhythmia, unspecified (principal); R00.0 Tachycardia, unspecified | CPT/HCPCS: 93306 ==

== ENCOUNTER 2022-11-25 11:22 | Outpatient (CLI) | payer MEDICARE, MEDICAID | END 2022-11-25 23:59 | disposition home or self-care (01) | LOC: LAB 11:22 | PROVIDERS: ATTEND Physician Assistant | DX: L03.032 Cellulitis of left toe (principal) | CPT/HCPCS: 87070; 87181; 87205 ==

== ENCOUNTER 2022-12-02 07:00 | Outpatient (CLI) | payer MEDICARE, MEDICAID | END 2022-12-02 23:59 | disposition home or self-care (01) | LOC: LAB.S 07:00 | PROVIDERS: ATTEND Emergency Medicine | DX: L60.0 Ingrowing nail (principal) | CPT/HCPCS: 87070; 87181; 87205 ==

== ENCOUNTER 2023-01-01 07:00 | Outpatient (CLI) | payer MEDICARE, MEDICAID | END 2023-01-01 23:59 | disposition home or self-care (01) | LOC: LAB.S 07:00 | PROVIDERS: ATTEND Physician Assistant Medical | DX: N39.0 Urinary tract infection, site not specified (principal) | CPT/HCPCS: 87086; 87181 ==

== ENCOUNTER 2023-03-11 10:16 | Outpatient (CLI) | payer MEDICARE, MEDICAID ==
[2023-03-11 14:22] LABS: HCT - HEMATOCRIT 50.5 % (37.0-47.0); HGB - HEMOGLOBIN 16.2 g/dL (12.0-16.0); MEAN CORPUSCULAR HEMOGLOBIN 28.6 pg (27.0-31.0); MEAN CORPUSCULAR HGB CONC 32.1 g/dL (32.0-36.0); MEAN CORPUSCULAR VOLUME 89.2 fL (81.0-99.0); MEAN PLATELET VOLUME 10.7 fL (7.9-10.8); RED BLOOD COUNT 5.66 10^6/uL (4.20-5.40); RED CELL DISTRIBUTION WIDTH 12.5 % (12.0-15.0); WHITE BLOOD COUNT 11.7 x10^3/uL (4.8-10.8)
[2023-03-11 15:21] LABS: CALCIUM 9.4 mg/dL (8.5-10.3); CREATININE 0.7 mg/dL (0.4-1.0); POTASSIUM 4.5 mmol/L (3.5-5.0)
== END 2023-03-11 10:17 | disposition home or self-care (01) ==
LOC: LAB.S 10:16
PROVIDERS: ATTEND Physician Assistant
DX: R60.0 Localized edema (principal)
CPT/HCPCS: 36415; 80048; 83880; 84443; 85027

== ENCOUNTER 2023-11-30 12:04 | Outpatient (CLI) | payer MEDICARE, MEDICAID ==
[2023-11-30 14:39] LABS: BASOPHILS # (AUTO) 0.1 10^3/uL (0.0-0.1); BASOPHILS % (AUTO) 0.4 %; EOSINOPHILS # (AUTO) 0.2 10^3/uL (0.0-0.7); EOSINOPHILS % (AUTO) 1.3 %; LYMPHOCYTES # (AUTO) 3.8 10^3/uL (1.5-3.5); MEAN CORPUSCULAR HEMOGLOBIN 28.3 pg (27.0-31.0); MEAN CORPUSCULAR VOLUME 88.3 fL (81.0-99.0); MEAN PLATELET VOLUME 10.6 fL (7.9-10.8); MONOCYTES # (AUTO) 0.6 10^3/uL (0.0-1.0); MONOCYTES % (AUTO) 5.4 %; NEUTROPHILS # (AUTO) 6.6 10^3/uL (1.5-6.6); NEUTROPHILS % (AUTO) 58.6 %; PLT - PLATELET COUNT 248 10^3/uL (130-450); RED BLOOD COUNT 5.66 10^6/uL (4.20-5.40); RED CELL DISTRIBUTION WIDTH 12.6 % (12.0-15.0); WHITE BLOOD COUNT 11.3 x10^3/uL (4.8-10.8)
[2023-11-30 15:32] LABS: ALBUMIN 4.3 g/dL (3.2-5.5); ALBUMIN/GLOBULIN RATIO 1.7 (1.0-2.2); ALKALINE PHOSPHATASE 71 IU/L (42-121); ALT ALANINE AMINOTRANSFERASE 33 IU/L (10-60); AST ASPARTATE AMINOTRANSFERASE 21 IU/L (10-42); BILIRUBIN,TOTAL 0.5 mg/dL (0.2-1.0); BUN - BLOOD UREA NITROGEN 16 mg/dL (6-20); CALCIUM 9.9 mg/dL (8.5-10.3); CARBON DIOXIDE - CO2 30 mmol/L (21-32); CHLORIDE 104 mmol/L (101-111); CHOL/HDL RATIO 7.3 (<4.4); CHOLESTEROL 262 mg/dL; CREATININE 0.6 mg/dL (0.6-1.3); GFR - MDRD 100 (>89); GLUCOSE 98 mg/dL (74-104); HDL CHOLESTEROL 36 mg/dL; LDL CHOLESTEROL,CALCULATED 156 mg/dL; LDL/HDL RATIO 4.3 (<4.4); POTASSIUM 4.2 mmol/L (3.5-4.5); SODIUM 140 mmol/L (135-145); TOTAL PROTEIN 6.8 g/dL (6.4-8.9); TRIGLYCERIDES 352 mg/dL (48-352); VLDL CHOLESTEROL 70 mg/dL
== END 2023-11-30 12:05 | disposition home or self-care (01) ==
LOC: LAB.S 12:04
PROVIDERS: ATTEND Registered Nurse
DX: I10 Essential (primary) hypertension (principal); E78.5 Hyperlipidemia, unspecified
CPT/HCPCS: 36415; 80053; 80061; 83721; 85025

== ENCOUNTER 2024-01-20 09:10 | Outpatient (CLI) | payer MEDICARE, MEDICAID ==
--- NOTE | 2024-01-20 17:47 | CT Report ---
PROCEDURE: Lung Cancer Screen INDICATIONS: LUNG CA SCREENING TECHNIQUE: A CT scan of the chest was performed. Intravenous contrast media was not administered. Images were re corded and evaluated at appropriate window settings. Reformats: axial MIP of the chest, coronal and s agittal. For radiation dose reduction, the following was used: automated exposure control, adjustment of mA and/or kV according to patient size. COMPARISON: 12/21/2020 FINDINGS: Image quality: Excellent. Prior cancer history: None given Lungs and pleura: No pleural effusions. No pneumothorax. No suspicious pulmonary nodules which requi re follow up. Minimal nodularity in the lateral aspect of the right upper lobe on current image 31/4 is stable compared to previous image 101/4. No new or increasing pulmonary nodules. Mediastinum: Heart size is normal. No pericardial effusion. No large vessel abnormality. No mediastin al adenopathy by size criteria. Chest wall and lower neck: Mild thyromegaly with no thyroid nodules identified. No axillary or suprac lavicular adenopathy by size. Bones: No aggressive osseous abnormality. Upper Abdomen: Unremarkable. IMPRESSION: Lung RAD: 1 - Negative. Recommendation: Continue annual screening in 12 Months with LDCT Non-Lung Significant Findings: None. Reviewed by: Liu Patel MD on 01/20/2024 5:46 PM PDT Approved by: Liu Patel MD on 01/20/2024 5:46 PM PDT Station ID: [id number]
== END 2024-01-20 09:11 | disposition home or self-care (01) ==
LOC: DI 09:10
PROVIDERS: ATTEND Registered Nurse
DX: Z12.2 Encounter for screening for malignant neoplasm of respiratory organs (principal); F17.210 Nicotine dependence, cigarettes, uncomplicated